=== PATIENT | male | born 1955 | race Caucasian/White ===

== ENCOUNTER 2016-12-19 16:36 | Emergency (ER) | payer BC ==
[~2016-12-19] VITALS: Ht 170.2 cm; Wt 75.1 kg
[2016-12-19 16:46] VITALS: BP 180/87
[2016-12-19] MEDS ORDERED: TAMS-11 PO (17:25)
[2016-12-19] MEDS ORDERED: PHEN95TA25 PO (17:25)
[2016-12-19] MEDS ORDERED: SIMV40TA3 PO (17:25)
== END 2016-12-19 19:04 | disposition home or self-care (01) ==
LOC: ED 18:58
DX: N40.1 Benign prostatic hyperplasia with lower urinary tract symptoms (principal); R33.8 Other retention of urine; N30.00 Acute cystitis without hematuria; Z85.46 Personal history of malignant neoplasm of prostate
CPT/HCPCS: 51702; 81001; 87086